=== PATIENT | female | born 1990 | race Caucasian/White ===

== ENCOUNTER 2022-11-17 09:25 | Emergency (ER) | payer OTHER, SELFPAY ==
[2022-11-17] VITALS (22 sets, daily range): BP systolic 97–139; BP diastolic 61–95; PULSE 51–92; RESP 12–23; TEMP 36.6; O2SAT 95–100
--- NOTE | ~2022-11-17 | CT_ITS ---
CT of the Abdomen and Pelvis: Indication: Abdominal pain Technique: 2.5 mm axial scans were obtained through the abdomen and pelvis following intravenous adm inistration of 100 cc of Omnipaque 350. Dose reduction technique was used on this scan by utilizing a utomated exposure control and iterative reconstruction technique. The dose-length product (DLP) was 1 181.72 mGy-cm. Findings: Scans through the lung bases are unremarkable. The liver, spleen, pancreas, gallbladder, adrenals and kidneys are within normal limits. No evidence of aortic aneurysm. No lymphadenopathy. No bowel obstruction or bowel wall thickening. Normal appendix. Images through the pelvis were performed. Urinary bladder is unremarkable. No adnexal mass evident. N o ascites. Impression: No significant abnormalities seen. Reviewed, dictated and finalized at [facility]. Impression: No significant abnormalities seen.
[2022-11-17 10:01] LABS: Basophils Absolute Auto 0.1 K/mm3 (0.0-0.1); Basophils Percent Auto 0.6 % (0.2-1.2); Eosinophils Absolute Auto 0.2 K/mm3 (0-0.3); Eosinophils Percent Auto 1.9 % (0-4.4); Hematocrit 44.7 % (37.0-47.0); Hemoglobin 15.2 g/dL (12.0-15.0); Immature Granulocyte Absolute 0.02 K/mm3 (0.00-0.031); Immature Granulocyte Percent A 0.3 % (0-0.5); Lymphocytes Percent Auto 27.2 % (18.3-44.2); Mean Corpuscular Hemoglobin 30.3 pg (26-34); Mean Corpuscular Volume 89.2 fl (80-100); Mean Platelet Volume 8.6 fl (7.4-10.4); Monocytes Absolute Auto 0.4 K/mm3 (0.1-0.6); Monocytes Percent Auto 5.3 % (2.6-8.5); Neutrophils Percent Auto 64.7 % (45.5-73.1); Platelet Count Result 245 k/mm3 (150-375); Red Blood Count 5.01 M/mm3 (4.2-5.4); Red Cell Distribution Width 12.9 % (11.5-14.5); White Blood Count 7.7 K/mm3 (4.5-10.0)
[2022-11-17 10:02] LABS: Appearance Urine Clear (Clear); Bilirubin Urine Negative (Negative); Blood Urine Negative (Negative); Color Urine Yellow (Yellow); Glucose Urine UA Negative (Negative); Ketones Urine Negative (Negative); Leukocyte Esterase Ur Negative LEU/UL (Negative); Nitrate Urine Negative (Negative); Protein Urine Negative (Negative); Specific Grav Ur 1.007 (1.001-1.035); Urobilinogen Urine 0.2 mg/dL (<2.0); pH Urine 6.5 (5.0-9.0)
[2022-11-17 10:06] LABS: Add Urine Microscopic? NO
--- NOTE | 2022-11-17 10:16 | ED.GENADULT ---
HPI - General Adult General Chief complaint: Abdominal Pain Stated complaint: abd pain Time Seen by Provider: 11/17/22 09:41 Source: patient Mode of arrival: ambulatory Limitations: no limitations History of Present Illness HPI narrative: This is a 32-year-old female who presents to the ED with chief complaint of right lower quadrant pain beginning 3 days ago. Reports pain radiates to the right towards the back on occasion. Reports she had 1 episode of vomiting yesterday with bilious vomit. Reports pain worsens with bowel movements. She reports bowel movements have been solid and denies any GI bleeding symptoms. She states she was seen in another hospital 3 days ago and left to go home after they wanted to transfer her for CT scan as their computer system went down. Since then pain has been intermittent. Denies fevers, chills, flank pain, urinary symptoms, LOC, chest pain, shortness of breath, cough. Related Data Allergies Allergy/AdvReac Type Severity Reaction Status Date / Time No Known Allergies Allergy Verified 11/17/22 09:37 Review of Systems Review of Systems: All systems as dictated in HPI Exam Narrative: GENERAL: Well-appearing, well-nourished, and in no acute distress. HEAD: Normocephalic, atraumatic. EYES: PERRLA and EOMI. ENT: Nares clear, no rhinorrhea or epistaxis. Mucous membranes moist. Oropharynx without tonsillar hypertrophy exudate or other lesions. NECK: Supple. No adenopathy or masses. CHEST: No respiratory distress. Clear to auscultation. No wheezes rales or rhonchi HEART: Regular rate and rhythm. No murmur heard. Normal peripheral pulses. ABDOMEN: Focal right lower quadrant and suprapubic tenderness is present. Soft, otherwise nontender, nondistended, normal active bowel sounds. Negative Lucas sign. Negative peritoneal signs. MSK: Normal range of motion. No edema. SKIN: Warm, dry, no rash. NEURO: Alert and oriented x3. No focal deficits. PSYCH: Normal mood and affect. Course Course Emergency Course: Declines any pain meds on initial exam. Reevaluation 1230: She is now requesting pain meds. Reevaluation 1430: She is feeling better with pain meds. She now gives history of endometriosis in the past and states today it is feeling similar. This is more consistent with her exam and presentation today. She is ready for discharge with gynecology follow-up. Vital Signs Vital signs: Vital Signs Temperature 97.9 F 11/17/22 09:34 Pulse Rate 89 11/17/22 09:34 Respiratory Rate 16 11/17/22 09:34 Blood Pressure 134/86 11/17/22 09:34 Pulse Oximetry 100 11/17/22 09:34 Temperature 97.9 F 11/17/22 09:34 Pulse Rate 53 L 11/17/22 14:30 Respiratory Rate 15 11/17/22 14:30 Blood Pressure 108/61 11/17/22 12:45 Pulse Oximetry 98 11/17/22 14:30 Medical Decision Making MDM Narrative Medical decision making narrative: This is a 32-year-old female who presents to the ED with chief complaint of right lower quadrant abdominal pain along with back pain onset x3 days. Vitals are normal. Exam shows some right lower quadrant tenderness. Otherwise exam is intact. Lab work is grossly unremarkable. Slight elevations in AST and ALT encouraged her to follow-up with PCP about this. I do not feel they are clinically correlated to her presentation today. UA is grossly negative. Abdominal CT scan with IV contrast does not reveal any acute intra-abdominal abnormalities. Symptoms are more consistent with endometriosis which she has had in the past. She has improved with pain meds and fluids here. She will be discharged with gynecology follow-up. Pt will be discharged in stable condition. Return precautions given and supportive measures discussed. Pt is understanding and agreeable with plan for discharge and follow-up with PCP. Vital Signs Vital Signs: Vital Signs Temperature 97.9 F 11/17/22 09:34 Pulse Rate 89 11/17/22 09:34 Respiratory Rate 16 11/17
[2022-11-17 10:43] LABS: Alanine Aminotransferase 73 U/L (6-35); Albumin Level 4.7 g/dL (3.5-5.1); Alkaline Phosphatase 63 U/L (38-126); Anion Gap 10 mmol/L (8-16); Aspartate Amino Transferase 49 U/L (14-36); Bilirubin,Total 0.4 mg/dL (0.2-1.3); Blood Urea Nitrogen 10 mg/dL (7-17); Calcium 9.2 mg/dL (8.4-10.2); Carbon Dioxide 25 mmol/L (22-30); Chloride 101 mmol/L (98-107); Estimated CRCL calculation 101 ml/min; Estimated Glomerular Filt Rate > 60; Glucose 118 mg/dL (65-110); Lipase 47 U/L (23-300); Potassium 3.9 mmol/L (3.4-5.0); Sodium 136 mmol/L (137-145)
[2022-11-17] MEDS: MORPHINE SULFATE (*CRX) 4 MG/ML INJ IV PUSH (13:07)
[2022-11-17] MEDS: ONDANSETRON INJ 4 MG/2 ML VIAL IV PUSH (13:08)
[2022-11-17] MEDS: DICYCLOMINE HCL 10 MG CAPSULE 20 MG PO (13:08)
== END 2022-11-17 14:48 | disposition home or self-care (01) ==
PROVIDERS: Emergency Medicine; Emergency Provider Physician Assistant; PCP Pediatrics
DX: R10.31 Right lower quadrant pain (principal)
CPT/HCPCS: 36415; 74177; 80053; 81003; 81025; 83690; 85025; 96374; 96375; 99284; A9270; J2270; J2405; Q9967

== ENCOUNTER 2023-12-10 12:32 | Emergency (ER) | payer OTHER, SELFPAY ==
--- NOTE | ~2023-12-10 | CT_ITS ---
EXAMINATION: CT foot LT wo con DATE: 12/10/2023 13:35 INDICATION: Left foot injury. TECHNIQUE: Computed tomography (CT) of the left foot was performed without intravenous contrast. Auto mated exposure control and iterative reconstruction technique were employed. The dose-length product was 533.33 mGy-cm. COMPARISON: Left foot radiographs 12/10/2023 FINDINGS: Bone alignment is normal. No fracture. 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 There is dorsal subcutaneous hematoma in the forefoot. IMPRESSION: 1. No fracture. Reviewed, dictated and finalized at location A. IMPRESSION: 1. No fracture.
--- NOTE | ~2023-12-10 | XR_ITS ---
EXAMINATION: XR foot LT min 3V DATE: 12/10/2023 12:50 INDICATION: Left foot injury and pain. TECHNIQUE: 4 views of left foot were obtained. COMPARISON: None. FINDINGS: Bone alignment is normal. No fracture. 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 IMPRESSION: 1. No fracture. Reviewed, dictated and finalized at location A. IMPRESSION: 1. No fracture.
[2023-12-10 12:35] VITALS: BP 117/64; PULSE 92; RESP 18; TEMP 36.3; O2SAT 99
--- NOTE | 2023-12-10 13:27 | ED.GENADULT ---
HPI - General Adult General Chief complaint: Extremity Injury, Lower Stated complaint: Left Foot Injury Time Seen by Provider: 12/10/23 12:50 History of Present Illness HPI narrative: Patient is a 33-year-old female who presents to the emergency department this afternoon complaining of of left foot pain. Patient states that she dropped a slab of granite on her left foot and since then she has been having pain and swelling to her midfoot region. Patient denies any numbness and tingling. States that she is unable to bear weight on her left foot due to pain and has been hopping on her right leg. denies any additional injuries, denies any fall or head trauma. Patient rates the pain a 7/10. No additional symptoms or concerns at this time. Related Data Allergies Allergy/AdvReac Type Severity Reaction Status Date / Time No Known Allergies Allergy Verified 11/25/22 09:50 Review of Systems Review of Systems: All systems are reviewed and are negative unless stated otherwise in the HPI. [facility] Surgical History Surgical History History of delivery x 2 Family History Family History Grandparent Cerebrovascular accident Heart disease Social History Social History Smoking status: Never smoker Alcohol intake: never Substance use: never Living arrangements: with friend(s) Occupation/Education: occupation Gender identity (if verbalized by the patient): Female Exam Narrative: General: Alert, awake, afebrile, in no acute distress. HEENT: PERRL, no rhinorrhea, no post nasal drip, oropharynx clear. Cardiovascular: Regular rate and rhythm, no murmurs, rubs or gallops, no peripheral edema. Respiratory: Clear to auscultation bilaterally, no tachypnea, no wheezing, no rhonchi, no rubs, no respiratory distress. Abdomen: Soft, nontender, nondistended, no rebound, no guarding, no peritoneal signs. Musculoskeletal: Moderate swelling and ecchymosis to left mid foot, area is tender to touch, no tenderness to palpation over the base of 5th metatarsal, patient is unable to bear weight on her left foot due to pain. Skin: No rashes or petechia, no signs of infection. Neurological: Alert and oriented to person, place, and time. Follows all commands. No focal deficits, speech is clear and fluent. Course Vital Signs Vital signs: Vital Signs Temperature 97.3 F L 12/10/23 12:35 Pulse Rate 92 12/10/23 12:35 Respiratory Rate 18 12/10/23 12:35 Blood Pressure 117/64 12/10/23 12:35 Pulse Oximetry 99 12/10/23 12:35 Oxygen Delivery Room Air 12/10/23 12:35 Temperature 97.3 F L 12/10/23 12:35 Pulse Rate 61 12/10/23 14:02 Respiratory Rate 16 12/10/23 14:02 Blood Pressure 96/59 L 12/10/23 14:02 Pulse Oximetry 100 12/10/23 14:02 Oxygen Delivery Room Air 12/10/23 12:35 Medical Decision Making MDM Narrative Medical decision making narrative: The patient was evaluated by myself in the emergency department. History is obtained from patient who is an independent historian and physical exam was performed. External medical records were reviewed at this time. Patient was administered an oral [place] 0.5-325 mg for pain. Imaging studies obtained included left foot xray which was independently interpreted by me revealing no acute process, which is pending final radiology interpretation. at this time, CT of the left foot without IV contrast was obtained and independently interpreted by me revealing No acute process. Patient was informed of these findings at bedside. She was instructed to rest, ice and elevate her left foot and weight bear as tolerated. She is also instructed to alternate between Tylenol and Motrin for pain. Differential diagnosis considerations include musculoskeletal strain, fractures, dislocation.
[2023-12-10 14:02] VITALS: BP 96/59; PULSE 61; RESP 16; O2SAT 100
[2023-12-10] MEDS: HYDROcodone/acetaminophen (*CRX) 7.5-325 MG TABLET 1 TAB PO (14:04)
--- NOTE | 2023-12-10 14:18 | PC.NURSE ---
Per MD verbal order, rhoda wrap applied to LLE. DP present, L. foot is warm to the touch.
== END 2023-12-10 15:22 | disposition home or self-care (01) ==
PROVIDERS: Emergency Provider Emergency Medicine; PCP Pediatrics
DX: S90.32XA Contusion of left foot, initial encounter (principal); W20.8XXA Other cause of strike by thrown, projected or falling object, initial encounter
CPT/HCPCS: 73630; 73700; 99283; A9270